=== PATIENT | female | born 1925 | race Caucasian/White ===

== ENCOUNTER 2017-01-16 12:56 | Inpatient (IN) | payer MEDICARE, OTHER ==
[~2017-01-16] VITALS: Ht 175.3 cm; Wt 70.0 kg
[~2017-01-16 12:56] MED LIST: ASPI-515 PO; HEPA5000 SQ; LEVO25TA4 PO; TRIA1TAB3 PO; [UNRECOGNIZED DRUG - OTHER] PO
[2017-01-16 14:02] LABS: BLOOD UREA NITROGEN 21 mg/dL (7-18)
[2017-01-16] MEDS ORDERED: SODIUM CHLORIDE 0.9% 1,000 ML IV ONE (14:16)
[2017-01-16] MEDS ORDERED: MORPHINE SULFATE 4 MG/ML, 1ML IVPush PRN (14:30)
[2017-01-16] MEDS ORDERED: ONDANSETRON 2MG/ML, 2ML IVPush PRN ×2 (14:30→15:00)
[2017-01-16 15:00] VITALS: BP 133/71
[2017-01-16] MEDS ORDERED: POLYETHYLENE GLYCOL 17 GM PACKET PO PRN (15:00)
[2017-01-16] MEDS ORDERED: ONDANSETRON ODT 4 MG PO PRN (15:00)
[2017-01-16] MEDS: HEPARIN 5,000 UNITS/ML, 1ML SQ SCH ×2 (15:00→21:55)
[2017-01-16] MEDS ORDERED: morphine SULFATE 10 MG/ML, 1ML IVPush PRN (15:00)
[2017-01-16] MEDS ORDERED: BISACODYL 10 MG SUPP PR PRN (15:00)
[2017-01-16] MEDS ORDERED: ENALAPRILAT 1.25 MG/ML, 2ML IVPush PRN (15:00)
[2017-01-16] MEDS ORDERED: ROPIvacaine/PF 0.5%, 30 ML ONE (17:59)
[2017-01-16] MEDS ORDERED: FENTANYL PF 250 MCG/5ML ONE (18:41)
[2017-01-16] MEDS ORDERED: ROCURONIUM 10 MG/ML ONE (18:46)
[2017-01-16] MEDS ORDERED: VANCOMYCIN 1,000 MG ONE (18:46)
[2017-01-16] MEDS ORDERED: ONDANSETRON 2MG/ML, 2ML ONE (18:46)
[2017-01-16] MEDS ORDERED: EPHEDRINE 50 MG/ML, 1ML ONE (18:46)
[2017-01-16] MEDS ORDERED: NEOSTIGMINE 1 MG/ML, 10ML ONE (18:46)
[2017-01-16] MEDS ORDERED: GLYCOPYRROLATE 0.2MG/1ML ONE (18:46)
[2017-01-16] MEDS ORDERED: PROPOFOL 10 MG/ML, 20ML ONE (18:46)
[2017-01-16 22:00] VITALS: BP 88/53
[2017-01-16 23:11] VITALS: BP 89/51
[2017-01-16 23:27] VITALS: BP 95/56
[2017-01-16] MEDS: ACETAMINOPHEN 325 MG TABLET PO PRN (23:33)
[2017-01-17] VITALS (7 sets, daily range): BP systolic 92–111; BP diastolic 48–61
[2017-01-17] MEDS: CEFAZOLIN PMX 2GM/50ML 50 ML IVPB SCH ×2 (01:06→08:37)
[2017-01-17] MEDS: ACETAMINOPHEN 325 MG TABLET PO PRN ×2 (13:05→20:16)
[2017-01-17] MEDS: DOCUSATE 100 MG CAPSULE PO PRN (20:16)
[2017-01-18] VITALS (9 sets, daily range): BP systolic 96–113; BP diastolic 54–64
[2017-01-18] MEDS: HEPARIN 5,000 UNITS/ML, 1ML SQ SCH ×3 (04:58→12:33)
[2017-01-18] MEDS: ACETAMINOPHEN 325 MG TABLET PO PRN ×2 (05:00→18:30)
[2017-01-18] MEDS ORDERED: [UNRECOGNIZED DRUG - REMARK] MC PRN (12:30)
[2017-01-18] MEDS: DOCUSATE 100 MG CAPSULE PO PRN (21:41)
[2017-01-19 02:18] VITALS: BP 110/63
[2017-01-19 06:35] VITALS: BP 112/58
[2017-01-19] MEDS: ACETAMINOPHEN 325 MG TABLET PO PRN ×3 (10:35→22:30)
[2017-01-19 14:30] VITALS: BP 134/62
[2017-01-19 15:24] LABS: OCCBLD OBC PASS
[2017-01-19 19:16] VITALS: BP 115/61
[2017-01-20] VITALS (10 sets, daily range): BP systolic 97–143; BP diastolic 48–82
[2017-01-20] MEDS: ACETAMINOPHEN 325 MG TABLET PO PRN ×2 (05:46→22:03)
[2017-01-20] MEDS: DOCUSATE 100 MG CAPSULE PO PRN ×2 (09:21→21:47)
[2017-01-21 00:19] VITALS: BP 128/54
[2017-01-21 07:26] VITALS: BP 129/73
[2017-01-21] MEDS: DOCUSATE 100 MG CAPSULE PO PRN (07:33)
[2017-01-21] MEDS ORDERED: HEPA5000 SQ (09:08)
[2017-01-21] MEDS ORDERED: HYDR-3241 PO (09:08)
[2017-01-21 12:02] VITALS: BP 141/70
== END 2017-01-21 12:09 | DRG 481 ==
LOC: ED 13:48 → EDIP 14:17 → 4NOR 15:54
PROVIDERS: ADMIT Internal Medicine; ATTEND Internal Medicine
PROC: 30233N1 Transfusion of Nonautologous Red Blood Cells into Peripheral Vein, Percutaneous Approach (ICD-10-PCS; 2017-01-16)
PROC: 0QS736Z Reposition Left Upper Femur with Intramedullary Internal Fixation Device, Percutaneous Approach (ICD-10-PCS; principal; 2017-01-16 18:00)
PROC: 30233N1 Transfusion of Nonautologous Red Blood Cells into Peripheral Vein, Percutaneous Approach (ICD-10-PCS; 2017-01-18)
PROC: 30233N1 Transfusion of Nonautologous Red Blood Cells into Peripheral Vein, Percutaneous Approach (ICD-10-PCS; 2017-01-20)
DX: S72.22XA Displaced subtrochanteric fracture of left femur, initial encounter for closed fracture (principal); D62 Acute posthemorrhagic anemia; Z99.11 Dependence on respirator [ventilator] status; S52.502A Unspecified fracture of the lower end of left radius, initial encounter for closed fracture; E03.9 Hypothyroidism, unspecified; D50.9 Iron deficiency anemia, unspecified; D63.8 Anemia in other chronic diseases classified elsewhere; D69.6 Thrombocytopenia, unspecified; E21.3 Hyperparathyroidism, unspecified; H35.30 Unspecified macular degeneration; I11.9 Hypertensive heart disease without heart failure; M11.239 Other chondrocalcinosis, unspecified wrist; W01.0XXA Fall on same level from slipping, tripping and stumbling without subsequent striking against object, initial encounter; M19.90 Unspecified osteoarthritis, unspecified site; Z96.653 Presence of artificial knee joint, bilateral; Z88.0 Allergy status to penicillin; Z88.2 Allergy status to sulfonamides; Z88.1 Allergy status to other antibiotic agents; Z88.8 Allergy status to other drugs, medicaments and biological substances; Y93.89 Activity, other specified; Y92.89 Other specified places as the place of occurrence of the external cause; Y99.8 Other external cause status
CPT/HCPCS: 36415; 51702; 71010; 76001; 80048; 82040; 82272; 82607; 82746; 85014; 85018; 85025; 86850; 86900; 86923; 88307; 88311; 93005; 96360; 96361; C1713; J0690; J1644; J2405; J2704; J2710; J2795; J3010; J3370; J3490; C1769; J7030; P9016

== ENCOUNTER 2017-04-04 02:59 | Inpatient (IN) | payer MEDICARE, OTHER ==
[~2017-04-04] VITALS: Ht 172.7 cm; Wt 63.8 kg
[~2017-04-04 02:59] MED LIST changes: +HYDR-3241 PO
[2017-04-04] MEDS ORDERED: SODIUM CHLORIDE 0.9% 1,000 ML IV ONE (03:03)
[2017-04-04 03:22] LABS: HEMATOCRIT 40.6 % (34.6-47.8); HEMOGLOBIN 13.9 g/dL (11.7-16.4); WHITE BLOOD COUNT 7.3 x10^3/uL (3.4-10)
[2017-04-04] MEDS ORDERED: ONDANSETRON 2MG/ML, 2ML IVPush ONE (03:30)
[2017-04-04] MEDS ORDERED: SODIUM CHLORIDE FLUSH 10ML SYR IVF ONE (03:30)
[2017-04-04 03:33] LABS: ASPARTATE AMINO TRANSFERASE 25 U/L (15-37); BLOOD UREA NITROGEN 17 mg/dL (7-18)
[2017-04-04] MEDS ORDERED: ONDANSETRON 2MG/ML, 2ML ONE (03:35)
[2017-04-04] MEDS ORDERED: MORPHINE SULFATE 4 MG/ML, 1ML ONE ×2 (03:35→04:15)
[2017-04-04 03:37] LABS: IS PT STATUS REG ER OR PRE ER? YES
[2017-04-04] MEDS: MORPHINE SULFATE 4 MG/ML, 1ML IVPush PRN ×2 (03:43→04:19)
[2017-04-04] MEDS ORDERED: OMNIPAQUE 350 MG/ML, 100ML BOTTLE ONE (04:14)
[2017-04-04] MEDS ORDERED: SODIUM CHLORIDE 0.9% 1,000ML IVBOLUS ONE (05:00)
[2017-04-04] MEDS ORDERED: ACETAMINOPHEN 325 MG TABLET PO PRN (05:30)
[2017-04-04] MEDS ORDERED: ONDANSETRON 2MG/ML, 2ML IVPush PRN (05:30)
[2017-04-04] MEDS ORDERED: ENALAPRILAT 1.25 MG/ML, 2ML IVPush PRN (05:30)
[2017-04-04] MEDS ORDERED: METOCLOPRAMIDE 5 MG/ML, 2ML IVPush PRN (05:30)
[2017-04-04] MEDS ORDERED: TEMAZEPAM 15 MG CAPSULE PO PRN (05:30)
[2017-04-04] MEDS ORDERED: LABETALOL 5MG/ML, 20ML IVPush PRN (05:30)
[2017-04-04] MEDS ORDERED: ONDANSETRON ODT 4 MG PO PRN (05:30)
[2017-04-04] MEDS ORDERED: OXYcodone IR 5MG TABLET PO PRN (05:30)
[2017-04-04 07:21] VITALS: BP 150/80
[2017-04-04 08:00] VITALS: BP 150/80
[2017-04-04] MEDS: D5%-0.45NACL+KCL 20MEQ 1,000 ML IV SCH ×2 (08:25→21:03)
[2017-04-04] MEDS: morphine SULFATE 10 MG/ML, 1ML IVPush PRN ×4 (08:25→21:02)
[2017-04-04] MEDS ORDERED: SODIUM BICARB 8.4%, 50ML SYRINGE ONE (11:19)
[2017-04-04] MEDS: FAMOTIDINE 20 MG/2 ML IVPush SCH ×2 (12:45→22:22)
[2017-04-04 13:10] VITALS: BP 146/78
[2017-04-04 13:44] VITALS: BP 125/72
[2017-04-04 20:17] VITALS: BP 129/82
[2017-04-05] MEDS: morphine SULFATE 10 MG/ML, 1ML IVPush PRN ×3 (01:03→12:15)
[2017-04-05 03:43] VITALS: BP 107/65
[2017-04-05 05:14] LABS: BLOOD UREA NITROGEN 31 mg/dL (7-18); HEMATOCRIT 45.9 % (34.6-47.8); HEMOGLOBIN 15.5 g/dL (11.7-16.4); WHITE BLOOD COUNT 12.2 x10^3/uL (3.4-10)
[2017-04-05 05:27] LABS: ASPARTATE AMINO TRANSFERASE 24 U/L (15-37)
[2017-04-05] MEDS: D5%-0.45NACL+KCL 20MEQ 1,000 ML IV SCH (06:17)
[2017-04-05] MEDS ORDERED: SODIUM CHLORIDE 0.9% 1,000 ML IV SCH ×2 (07:00→10:00)
[2017-04-05 07:20] VITALS: BP 75/25
[2017-04-05] MEDS ORDERED: VANCOMYCIN PER PHARMACY MC PRN (08:00)
[2017-04-05] MEDS ORDERED: MEROPENEM 1 GM in SODIUM CHLORIDE 0.9% 100 ML IV SCH (08:00)
[2017-04-05] MEDS ORDERED: PHARMACOKINETIC MONITORING MC PRN (08:30)
[2017-04-05] MEDS ORDERED: VANCOMYCIN 1,200 MG in SODIUM CHLORIDE 0.9% 250 ML IV ONE (08:30)
[2017-04-05 08:39] LABS: BLOOD UREA NITROGEN 34 mg/dL (7-18)
[2017-04-05] MEDS ORDERED: LEVOTHYROXINE 25 MCG TABLET PO SCH (09:00)
[2017-04-05] MEDS ORDERED: TRIAMTERENE-HCTZ 37.5/25 MG TABLET PO SCH (09:00)
[2017-04-05 09:11] LABS: HEMATOCRIT 46.3 % (34.6-47.8); HEMOGLOBIN 15.3 g/dL (11.7-16.4); WHITE BLOOD COUNT 12.6 x10^3/uL (3.4-10)
[2017-04-05] MEDS ORDERED: FENTANYL PF 100 MCG/2ML ONE (09:44)
[2017-04-05] MEDS ORDERED: FENTANYL PF 100 MCG/2ML IVPush PRN (10:00)
[2017-04-05] MEDS: FAMOTIDINE 20 MG/2 ML IVPush SCH (10:01)
[2017-04-05] MEDS ORDERED: VASOPRESSIN 20 UNIT/ML, 1ML ONE (10:28)
[2017-04-05] MEDS ORDERED: MIDAZOLAM 1 MG/ML, 2ML ONE (10:32)
[2017-04-05] MEDS ORDERED: FENTANYL PF 250 MCG/5ML ONE (10:32)
[2017-04-05] MEDS ORDERED: KETAMINE 100 MG/ML, 5ML ONE (10:40)
[2017-04-05] MEDS ORDERED: SODIUM BICARBONATE 1 MEQ/ML, 50ML VIAL ONE ×2 (11:47)
[2017-04-05] MEDS ORDERED: EPINEPHRINE 1 MG/ML, 1ML ONE (12:09)
[2017-04-05] MEDS ORDERED: EPINEPHRINE 1 MG in SODIUM CHLORIDE 0.9% 249 ML IV PRN (12:30)
[2017-04-05] MEDS ORDERED: ATROPINE OPHTH SOLN 1%, 2ML PO PRN (13:00)
[2017-04-05] MEDS ORDERED: LORazepam 2 MG/ML, 1ML IV ONE ×2 (13:00)
[2017-04-05] MEDS ORDERED: LORazepam 2 MG/ML, 1ML IV PRN ×2 (13:00)
[2017-04-05] MEDS ORDERED: morphine SULFATE 10 MG/ML, 1ML IV ONE ×2 (13:00)
[2017-04-05] MEDS ORDERED: morphine SULFATE 10 MG/ML, 1ML IV PRN ×2 (13:00)
[2017-04-06] MEDS ORDERED: SODIUM CHLORIDE 0.9% 1,000 ML IV SCH (07:00)
[2017-04-06] MEDS ORDERED: FAMOTIDINE 20 MG/2 ML IVPush SCH (09:00)
== END 2017-04-05 13:22 | disposition expired | DRG 853 ==
LOC: ED 04:59 → EDIP 05:00 → ED 05:10 → 4NOR 06:57 → CCU 04-05 09:15 → CSU 04-05 12:00
PROVIDERS: ADMIT Internal Medicine; ATTEND Internal Medicine
PROC: 0BH17EZ Insertion of Endotracheal Airway into Trachea, Via Natural or Artificial Opening (ICD-10-PCS; 2017-04-05)
PROC: 0WJP0ZZ Inspection of Gastrointestinal Tract, Open Approach (ICD-10-PCS; 2017-04-05)
PROC: 0DNU0ZZ Release Omentum, Open Approach (ICD-10-PCS; 2017-04-05)
PROC: 5A1935Z Respiratory Ventilation, Less than 24 Consecutive Hours (ICD-10-PCS; principal; 2017-04-05 11:00)
DX: A41.9 Sepsis, unspecified organism (principal); J96.00 Acute respiratory failure, unspecified whether with hypoxia or hypercapnia; I46.9 Cardiac arrest, cause unspecified; R65.21 Severe sepsis with septic shock; K55.069 Acute infarction of intestine, part and extent unspecified; K55.029 Acute infarction of small intestine, extent unspecified; Z99.11 Dependence on respirator [ventilator] status; I31.3 Pericardial effusion (noninflammatory); E87.1 Hypo-osmolality and hyponatremia; I10 Essential (primary) hypertension; E03.9 Hypothyroidism, unspecified; K57.30 Diverticulosis of large intestine without perforation or abscess without bleeding; K66.0 Peritoneal adhesions (postprocedural) (postinfection); N28.1 Cyst of kidney, acquired; Z66 Do not resuscitate; Z96.659 Presence of unspecified artificial knee joint; Z88.0 Allergy status to penicillin; Z88.2 Allergy status to sulfonamides; Z88.8 Allergy status to other drugs, medicaments and biological substances
CPT/HCPCS: 36415; 71010; 74177; 80048; 80053; 81003; 82803; 83605; 83690; 83735; 84100; 84443; 84484; 85025; 85610; 85730; 86850; 86900; 87040; 87081; 93005; 94002; 96361; 96374; 96375; 96376; J2185; J2250; J2405; J3010; J3370; Q9967; J0171; J2270; J2765; J3480; J7030; J7050; S0028